=== PATIENT | male | born 1960 ===

== ENCOUNTER 2020-07-10 18:42 | Emergency (ER) | payer SELFPAY ==
[~2020-07-10] VITALS: Ht 177.8 cm; Wt 80.0 kg
[2020-07-10] MEDS ORDERED: ZIPRASIDONE 20 MG INJ IM ONE ×2 (18:56→19:00)
[2020-07-10 19:04] LABS: BASOPHILS % (AUTO) 1 % (0-1); EOSINOPHILS % (AUTO) 0 % (1-7); LYMPHOCYTES % (AUTO) 33 % (22-44); MEAN CORPUSCULAR HEMOGLOBIN 32.8 pg (27.5-34.5); MEAN CORPUSCULAR HGB CONC 33.5 g/dL (33.2-36.2); MEAN PLATELET VOLUME 6.8 fL (7.4-10.4); MONOCYTES % (AUTO) 7 % (2-9); NEUTROPHILS % (AUTO) 59 % (42-75); PLATELET COUNT 229 x10^3/uL (130-400); RED BLOOD COUNT 3.95 x10^6/uL (4.38-5.82); RED CELL DISTRIBUTION WIDTH 17.2 % (9.4-14.8)
[2020-07-10 19:10] LABS: ALANINE AMINOTRANSFERASE 68 U/L (12-78); ALBUMIN 3.7 g/dL (3.4-5.0); ANION GAP 13 mmol/L (5-15); CALCIUM 8.2 mg/dL (8.5-10.1); CHLORIDE 107 mmol/L (98-107); CREATININE 0.77 mg/dL (0.7-1.3); MD NO
[2020-07-10 19:12] LABS: ALKALINE PHOSPHATASE 126 U/L (45-117); BILIRUBIN,TOTAL 0.3 mg/dL (0.2-1.0); TOTAL PROTEIN 7.5 g/dL (6.4-8.2)
--- NOTE | 2020-07-10 19:17 | NUR ---
PT CONTINUES TO ATTEMPT TO GET OUT OF BED. PT UNABLE TO AMBULATE AT THIS TIME D/T ETOH INTOXICATION. PT GIVEN GEODON PER OCTChristina KOCH AT BEDSIDE FOR SAFETY.
[2020-07-10 19:33] LABS: SALICYLATE LEVEL < 1.7 mg/dL (2.8-20.0)
--- NOTE | 2020-07-10 19:53 | NUR ---
PT CONTINUES TO PERIODICALLY ATTEMPT TO GET OUT OF BED. PT REDIRECTED BY SITTER AND PT LAYS BACK DOWN. PT CONNECTED TO MONITORING.
--- NOTE | 2020-07-10 20:04 | NUR ---
PT CONTINUES TO PULL OF PULSE OX MONITORING. PT IN DIRECT SIGHT OF SITTER FOR PT SAFETY.
--- NOTE | 2020-07-10 22:36 | NUR ---
PT STILL ATTEMPTING TO GET OUT OF BED. PT IS UNSTEADY WITH MOVING AROUND ON GURNEY. SITTER AT BEDSIDE FOR PT SAFETY.
--- NOTE | 2020-07-10 22:42 | NUR ---
PT GIVEN SANDWHICH AND WATER, PER MD REQUEST.
--- NOTE | 2020-07-10 23:05 | NUR ---
REPORT FROM GENE CROWE. SITTER OUTSIDE ROOM, IN LINE OF SITE. PT MTF, VSS. RR EQUAL AND UNLABORED.
--- NOTE | 2020-07-10 23:34 | NUR ---
first contact, pt with slurred speach, unsteady. Pt ate sandwhich, encouraged po fluids. sitter in line of site.
--- NOTE | 2020-07-11 00:18 | NUR ---
SITTER OUTSIDE ROOM, RR EQUAL AND UNLABORED. WILL CONTINUE TO MONITOR.
--- NOTE | 2020-07-11 01:39 | NUR ---
Sitter in line of site, RR equal and unlabored. VSS.
--- NOTE | 2020-07-11 02:34 | NUR ---
Pt wakes up with verbal communication, able to have conversation now still slightly slurry. VSS.
--- NOTE | 2020-07-11 03:08 | NUR ---
Pt awake, still with slightly slurred speach. Pt denies SI/HI. VSS.
[2020-07-11 03:09] VITALS: BP 122/74
--- NOTE | 2020-07-11 03:54 | NUR ---
Eating snacks, denies si/hi. VSS. Will continue to monitor.
--- NOTE | 2020-07-11 04:21 | NUR ---
Pt wakes up with verbal communication, asks to sleep more. VSS.
== END 2020-07-11 05:39 | disposition home or self-care (01) ==
LOC: ED 19:12
DX: G31.2 Degeneration of nervous system due to alcohol (principal); I51.7 Cardiomegaly; R45.851 Suicidal ideations
CPT/HCPCS: 36415; 80053; 80299; 80320; 80329; 85025; 93005; 96372; 99284; J3486; G0480